=== PATIENT | female | born 1990 | race Two or more races ===

== ENCOUNTER 2023-04-16 09:12 | Emergency (ER) | payer OTHER ==
[~2023-04-16] VITALS: Ht 172.7 cm; Wt 67.1 kg
[2023-04-16] MEDS ORDERED: ALLEGRA ALLERG180 MG (10:00)
[2023-04-16 11:56] LABS: HEMATOCRIT 40.6 % (36.0-45.00); HEMOGLOBIN 13.6 g/dL (12.0-15.00); MEAN CELL VOLUME 80.4 fL (80.00-100.00); MEAN CORPUSCULAR HEMOGLOBIN 26.9 pg (27.00-32.0); MEAN CORPUSCULAR HGB CONC 33.5 g/dl (32.0-36.0); PLATELET COUNT 253 K/uL (150-450); RED BLOOD COUNT 5.05 M/uL (4.00-6.00); RED CELL DISTRIBUTION WIDTH 13.4 % (11.5-14.5)
[2023-04-16 12:18] LABS: PH,URINE 5.5 (5.0-8.0); URINE APPEARANCE Clear; URINE BILIRRUBIN Negative (NEGATIVE); URINE BLOOD Negative; URINE COLOR Yellow; URINE GLUCOSE Negative (NEGATIVE); URINE LEUKOCYTE Negative; URINE NITRATE Negative; URINE PROTEIN Negative (NEGATIVE); URINE UROBILINOGEN 0.2 E.U./dl
[2023-04-16 12:21] LABS: URINE BACTERIA 45.3 uL (0.0-1933)
[2023-04-16 12:28] LABS: CALCIUM 9.6 mg/dL (8.5-10.1); CREATININE SERUM 0.75 mg/dL (0.55-1.02); GFR 88.99; POTASSIUM 4.06 mEq/L (3.5-5.1)
[2023-04-16 12:34] LABS: URINE EPITHELIAL CELLS 1.2 uL (0.0-38.8); URINE RBC 0.2 uL (0.0-20.8); URINE WBC 0.7 uL (0.0-23.2)
== END 2023-04-16 13:08 | disposition home or self-care (01) ==
LOC: ER 09:12
PROVIDERS: General Practice
DX: R10.9 Unspecified abdominal pain (principal); Z90.5 Acquired absence of kidney